=== PATIENT | female | born 1970 | race Caucasian/White ===

== ENCOUNTER 2016-09-25 05:12 | Emergency (ER) | payer BC ==
[~2016-09-25] VITALS: Ht 160 cm; Wt 97.1 kg
[2016-09-25] MEDS ORDERED: PREDNISONE10 MG PO (05:34)
[2016-09-25 05:50] VITALS: BP 128/93
== END 2016-09-25 05:50 | disposition home or self-care (01) ==
LOC: EME 05:12
DX: L25.5 Unspecified contact dermatitis due to plants, except food (principal)
CPT/HCPCS: 99281; 99283; J7512